=== PATIENT | female | born 1960 | race Caucasian/White ===

== ENCOUNTER 2021-10-21 10:43 | Observation (INO) | payer SELFPAY ==
[2021-10-21] VITALS (9 sets, daily range): BP systolic 94–122; BP diastolic 54–65
[~2021-10-21] VITALS: Ht 162 cm; Wt 65.4 kg
[~2021-10-21 10:43] MED LIST: HCT25T; RABE20TA; [UNRECOGNIZED DRUG - CODE]
[2021-10-21 11:09] LABS: BASOPHILS % (AUTO) 0 % (0-10); EOSINOPHILS % (AUTO) 1 % (0-10); HEMATOCRIT 38 % (35-52); HEMOGLOBIN 13.3 g/dL (11.5-16.0); LYMPHOCYTES % (AUTO) 35 % (12-44); MEAN CORPUSCULAR HEMOGLOBIN 30 pg (25-34); MEAN CORPUSCULAR HGB CONC 35 g/dL (32-36); MEAN CORPUSCULAR VOLUME 85 fL (80-99); MEAN PLATELET VOLUME 10.1 fL (9.0-12.2); MONOCYTES % (AUTO) 9 % (0-12); NEUTROPHILS % (AUTO) 54 % (42-75); PLATELET COUNT 309 10^3/uL (130-400); WHITE BLOOD COUNT 7.1 10^3/uL (4.3-11.0)
[2021-10-21 11:10] LABS: EOSINOPHILS # (AUTO) 0.1 10^3/uL (0.0-0.3); LYMPHOCYTES # (AUTO) 2.5 X 10^3 (1.0-4.0); MONOCYTES # (AUTO) 0.6 X 10^3 (0.0-1.0); NEUTROPHILS # (AUTO) 3.9 X 10^3 (1.8-7.8)
--- NOTE | 2021-10-21 11:10 | ED General ---
General Chief Complaint: Chest Pain Stated Complaint: CHEST PAIN Source of Information: Patient History of Present Illness Date Seen by Provider: Oct 21, 2021 Time Seen by Provider: 10:49 Initial Comments 61-year-old female presenting with multiple vague complaints. She states that she had gone to [employer] an order from [employer]. She started feeling tingling in her fingers while she was there. She had a headache on the left side of her head as well as nausea and increased belching. She had finished getting the order in the car and took it back to her client. After getting that done she had called the clinic to asked them what they thought about her symptoms and while talking to them she had some light chest pain on the left side. When she mentioned that she had chest pain they immediately told her to go to the emergency department. Patient states she has a history of high blood pressure that she takes hydrochlorothiazide for as well as she has hiatal hernia and polyps and she takes Protonix for that. She has history of frequent urinary tract infections because multiple complaints for her. She has no symptoms currently other than some mild tingling in her fingers. She denies having any fever or chills. She was having some lower abdominal discomfort while her symptoms were going on this morning. Her symptoms started around 930 or 10. Timing/Duration: 1/2 Hour Severity: Moderate Modifying Factors: improves with Rest Associated Systoms: Chest Pain (Reports some light chest pain to the left side of her chest); No Cough, No Diaphoresis, No Fever/Chills; Headaches; No Loss of Appetite, No Malaise, No Nausea/Vomiting, No Rash, No Seizure, No Shortness of Air, No Syncope, No Weakness Allergies and Home Medications Allergies Coded Allergies: Penicillins (Unverified Allergy, Mild, 09/18/09) Patient Home Medication List Home Medication List Reviewed: Yes Hydrochlorothiazide (Hydrochlorothiazide) 25 Mg Tablet, (Reported) Entered as Reported by: CASSANDRA REID on 09/18/091443 Multivitamins (Tab A Sue) 1 Each Tablet, (Reported) Entered as Reported by: CASSANDRA REID on 09/18/091444 Rabeprazole Sodium (Aciphex) 20 Mg Tablet., (Reported) Entered as Reported by: CASSANDRA REID on 09/18/091443 Review of Systems Review of Systems Constitutional: No chills; dizziness (With standing); No fever EENTM: No ear pain, No blurred vision, No double vision, No nose congestion Respiratory: No cough, No short of breath Cardiovascular: see HPI; No edema, No palpitations, No syncope Gastrointestinal: see HPI; No diarrhea, No vomiting Genitourinary: see HPI Musculoskeletal: no symptoms reported Skin: no symptoms reported Psychiatric/Neurological: Anxiety, Tingling (In her fingers) Hematologic/Lymphatic: Denies Blood Clots Past Lspboom-Rifnsf-Hifeom Hx Patient Social History Tobacco Use?: No Use of E-Cig and/or Vaping dev: No Substance use?: No Alcohol Use?: No Pt feels they are or have been: No Immunizations Up To Date First/Initial COVID19 Vaccinat: 2020 Second COVID19 Vaccination Roshan: 2020 COVID19 Vaccine Hse Coordinator: GORDON Past Medical History Surgery/Hospitalization HX: Hiatal hernia, hypertension, polyps, frequent UTIs Physical Exam Vital Signs Vital Signs - First Documented 10/21/21 10:43 Temp 36.6 Pulse 95 Resp 17 B/P (MAP) 161/80 (107) Pulse Ox 99 O2 Delivery Room Air Capillary Refill : Less Than 3 Seconds Height, Weight, BMI Height: 5'4.00" Weight: 161lbs. oz. 73.937979di; BMI Method: General Appearance: Anxious HEENT: PERRL/EOMI, Pharynx Normal Neck: Full Range of Motion, Supple Respiratory: Chest Non Tender, Lungs Clear, Normal Breath Sounds, No Accessory Muscle Use, No Respiratory Distress Cardiovascular: Regular Rate, Rhythm, Normal Peripheral Pulses Gastrointestinal: Normal Bowel Sounds, No Pulsatile Mass, Non Tender, Soft Rectal: Deferred Extremity: Normal Capillary Refill, Normal Inspection, No Calf Tenderness, No Pedal Edema Neurologic/Psychiatric: Alert, Oriented x3, paperhanger pipe II-XII Norm as Tested Skin: Normal Color, Warm/Dry; No Rash Progress/Results/Core Measures Suspected Sepsis SIRS Temperature: Pulse: Respiratory Rate: Laboratory Tests 10/21/21 10:56: White Blood Count 7.1 Blood Pressure / Mean: Laboratory Tests 10/21/21 10:56: Creatinine 0.72, INR Comment 0.9, Platelet Count 309, Total Bilirubin 0.7 Results/Orders Lab Results Laboratory Tests Test 10/21/21 10:56 1/6/22 11:13 10/21/21 12:45 Range/Units White Blood Count 7.1 4.3-11.0 10^3/uL Red Blood Count 4.46 3.80-5.11 10^6/uL Hemoglobin 13.3 11.5-16.0 g/dL Hematocrit 38 35-52 % Mean Corpuscular Volume 85 80-99 fL Mean Corpuscular Hemoglobin 30 25-34 pg Mean Corpuscular Hemoglobin Concent 35 32-36 g/dL Red Cell Distribution Width 12.9 10.0-14.5 % Platelet Count 309 130-400 10^3/uL Mean Platelet Volume 10.1 9.0-12.2 fL Immature Granulocyte % (Auto) 0 % Neutrophils (%) (Auto) 54 42-75 % Lymphocytes (%) (Auto) 35 12-44 % Monocytes (%) (Auto) 9 0-12 % Eosinophils (%) (Auto) 1 0-10 % Basophils (%) (Auto) 0 0-10 % Neutrophils # (Auto) 3.9 1.8-7.8 X 10^3 Lymphocytes # (Auto) 2.5 1.0-4.0 X 10^3 Monocytes # (Auto) 0.6 0.0-1.0 X 10^3 Eosinophils # (Auto) 0.1 0.0-0.3 10^3/uL Basophils # (Auto) 0.0 0.0-0.1 10^3/uL Immature Granulocyte # (Auto) 0.0 0.0-0.1 10^3/uL Prothrombin Time 13.0 12.2-14.7 SEC INR Comment 0.9 0.8-1.4 Activated Partial Thromboplast Time 30 24-35 SEC Sodium Level 139 135-145 MMOL/L Potassium Level 3.6 3.6-5.0 MMOL/L Chloride Level 102 98-107 MMOL/L Carbon Dioxide Level 28 21-32 MMOL/L Anion Gap 9 5-14 MMOL/L Blood Urea Nitrogen 15 7-18 MG/DL Creatinine 0.72 0.60-1.30 MG/DL Estimat Glomerular Filtration Rate 83 BUN/Creatinine Ratio 21 Glucose Level 108 H 70-105 MG/DL Calcium Level 9.4 8.5-10.1 MG/DL Corrected Calcium 9.1 8.5-10.1 MG/DL Magnesium Level 1.9 1.6-2.4 MG/DL Total Bilirubin 0.7 0.1-1.0 MG/DL Aspartate Amino Transf (AST/SGOT) 14 5-34 U/L Alanine Aminotransferase (ALT/SGPT) 14 0-55 U/L Alkaline Phosphatase 88 40-136 U/L Troponin I < 0.30 < 0.30 <0.30 NG/ML Pro-B-Type Natriuretic Peptide 89.7 H <75.0 PG/ML Total Protein 6.9 6.4-8.2 GM/DL Albumin 4.4 3.2-4.5 GM/DL Lipase 24 8-78 U/L Urine Color YELLOW Urine Clarity CLEAR Urine pH 6.5 5-9 Urine Specific Orient <=1.005 1.016-1.022 Urine Protein NEGATIVE NEGATIVE Urine Glucose (UA) NEGATIVE NEGATIVE Urine Ketones NEGATIVE NEGATIVE Urine Nitrite NEGATIVE NEGATIVE Urine Bilirubin NEGATIVE NEGATIVE Urine Urobilinogen 0.2 < = 1.0 MG/DL Urine Leukocyte Esterase TRACE H NEGATIVE Urine RBC (Auto) NEGATIVE NEGATIVE Urine RBC NONE /HPF Urine WBC 0-2 /HPF Urine Squamous Epithelial Cells 0-2 /HPF Urine Renal Epithelial Cells RARE /HPF Urine Crystals NONE /LPF Urine Bacteria NEGATIVE /HPF Urine Casts NONE /LPF Urine Mucus NEGATIVE /LPF Urine Culture Indicated NO My Orders Orders - JOCELYN OCONNELL MD Cbc With Automated Diff (10/21/21 10:48) Magnesium (10/21/21 10:48) Chest 1 View Ap/Pa Only (10/21/21 10:48) Ekg Tracing (10/21/21 10:48) Comprehensive Metabolic Panel (10/21/21 10:48) Protime With Inr (10/21/21 10:48) Partial Thromboplastin Time (10/21/21 10:48) O2 (10/21/21 10:48) Monitor-Rhythm Ecg Trace Only (10/21/21 10:48) Ed Iv/Invasive Line Start (10/21/21 10:48) Lipase (10/21/21 10:48) Troponin I Fs (10/21/21 10:48) Probnp Fs (10/21/21 10:48) Ua Culture If Indicated (10/21/21 11:02) Aspirin Chewable Tablet (Baby Aspirin Ch (10/21/21 11:15) Ns Iv 1000 Ml (Sodium Chloride 0.9%) (10/21/21 11:15) Nitroglycerin Ointment (Nitrobid Ointme (10/21/21 12:17) Ed Admission (Communication) (10/21/21 12:35) Covid 19 Inhouse Test (10/21/21 12:36) Influenza A And B By Pcr (10/21/21 12:36) Isolation Central Supply Req (10/21/21 12:36) Troponin I Fs (10/21/21 12:36) Vital Signs/I&O 10/21/21 10/21/21 10:43 13:40 Temp 36.6 36.5 Pulse 95 76 Resp 17 18 B/P (MAP) 161/80 (107) 151/62 Pulse Ox 99 98 O2 Delivery Room Air Room Air Capillary Refill : Less Than 3 Seconds Progress Note #1: Progress Note Obtain electrocardiogram with her complaint of chest pain. Check basic labs including cardiac enzymes and urinalysis. Chest x-ray to evaluate the structure of her heart and lungs. Will administer IV fluids for hydration and monitor her on cardiac telemetry monitoring while awaiting results. Differential diagnosis includes coronary artery disease, acute coronary syndrome, myocardial infarction, pneumonia, UTI, hiatal hernia, peptic ulcer disease, anxiety, dehydration, electrolyte imbalance Progress Note #2: Time: 11:39 Progress Note Electrocardiogram does not show acute ST elevation. The chest x-ray was clear without acute process. Urinalysis had trace leukocyte esterase but was otherwise clear. Since she was complaining of being dizzy when she stood a liter of normal saline was administered for hydration. She was given 324 mg of aspirin for her complaint of chest pain while waiting on testing. The chemistry panel did not demonstrate any acute significant abnormality and her initial cardiac enzymes are negative. The blood count was normal without significant abnormality as well. Will review results with the patient and plan on recheck of her troponin at 2 hours. on recheck of the patient she states she was feeling better after fluids and aspirin, but was cold from getting IVF. I stopped the IVF since she had already gotten 750-800 mL infused and her urine was diluted. She reports still some slight dizzy or light headed sensation but overall felt improved. Will continue to observe on telemetry monitoring and repeat troponin I in about an hour. Provided she has no further symptoms and her troponin remains 0, then we could try to get her home with plan to follow-up through the clinic for continued evaluation. If she has the troponin going up borderline new symptoms and anything changes then it may be a matter of discussion with the provider on-call for [facility] about observation stay for testing in the hospital Progress Note #3: Time: 12:15 Progress Note Patient reports she is now having intermittent chest pains again and still feeling dizzy with standing. She has some lower abdominal discomfort as well. She reports recently being around her sister, who is positive for Covid. Will try adding nitroglycerin paste and see if that helps her intermittent chest pains and check with Dr. Vick about admit for ACS rule out and possible Covid testing in [place]. Progress Note #4: Time: 12:35 Progress Note d/w Dr. Vick and will observe pt for her atypical chest pains and multiple vague complaints. She was around her sister in last few weeks that was positive for Covid so will swab for that and have her as PUI until results are back. Will advise Dr. Curry of consult. When updated pt about Dr. Vick accepting admit she added complaint of having pain in her upper thighs and recurrent abdominal pain now since the nitroglycerin was placed and her chest pains had resolved. None of her test results or exam would explain why she was having these symptoms. [address] Curry about consult and he was saying the pt could have serial enzymes done through the ED to rule out a cardiac source of her pain since she was not having ST elevation on ECG and she could see him as an outpatient. However, it would be 1600 before she had 6 hours since initial chest pain started, and she has had recurrent pains while at rest. Also with her left sided headache, lower abdominal pain, pain in her thighs and PUI Covid will continue with observation admit for additional evaluation and monitoring longer than could be done here in the ED. ECG Initial ECG Impression Date: Oct 21, 2021 Initial ECG Impression Time: 10:45 Initial ECG Rate: 73 Initial ECG Rhythm: Normal Sinus Initial ECG Comparisson: No Previous ECG Available Comment Normal sinus rhythm with a heart rate of [address] elevation. UT interval 140 ms. QT interval 419 ms with a QTc interval 462 ms. There is global T wave flattening. There is no prior tracing available for comparison Diagnostic Imaging Diagonstic Imaging: Xray Plain Films/CT/US/NM/MRI: chest Comments [facility]. [place], [place] NAME: BHASKAR PEREZ [facility] REC#: [id number] PT STATUS: REG ER : 1960 PHYSICIAN: JOCELYN OCONNELL MD ADMIT DATE: 10/21/21/ER FS Signed Date of Exam:10/21/21 CHEST 1 VIEW AP/PA ONLY EXAMINATION: Chest 1 view HISTORY: chest pain COMPARISON: 09/18/2009 FINDINGS: Heart size and pulmonary vasculature are normal. The lungs are clear without consolidation, pleural effusion, or pneumothorax. The osseous structures are intact. IMPRESSION: 1. No acute radiographic abnormality in the chest. Dictated by: Dictated on workstation # [id number] Dict: 10/21/21 1111 Trans: 10/21/21 1113 [facility] [id number] Interpreted by: TEJAS MAJOR DO Electronically signed by: TEJAS MAJOR DO 10/21/21 1113 Reviewed: Reviewed by Me Departure Communication (Admissions) Time/Spoke to Admitting Phy: 12:[address] Vick for the [facility] service and she will place Queued orders for admit for chest pain rule out. Will place her as Covid PUI until negative result obtained and will swab here so test can be done once she arrives in [place]. Will advise Dr. Curry of the admit as well. Time/Spoke to Consulting Phy: 12:55 Dr. Curry notified of consult for admit to [facility] Impression Primary Impression: Atypical chest pain Additional Impressions: Belching Hand tingling Qualified Codes: R20.2 - Paresthesia of skin Person under investigation for COVID-19 Intermittent abdominal pain Bilateral thigh pain Disposition: 30 STILL A PATIENT Condition: Stable Admissions Decision to Admit Reason: Admit from ER (General) Decision to Admit/Date: Oct 21, 2021 Time/Decision to Admit Time: 12:35 Departure-Patient Inst. Referrals: MELCHOR BRITO MD (PCP) Primary Care Physician JOCELYN OCONNELL MD Oct 21, 2021 11:10
[2021-10-21 11:14] LABS: INR 0.9 (0.8-1.4)
[2021-10-21] MEDS ORDERED: ASPIRIN 81 MG CHEW (CHILDREN'S ASA) PO STA (11:15)
[2021-10-21] MEDS ORDERED: NS IV 1000 ML 1,000 ML IV STA (11:15)
[2021-10-21 11:25] LABS: BILIRUBIN,URINE NEGATIVE (NEGATIVE); CLARITY,URINE CLEAR; COLOR,URINE YELLOW; GLUCOSE, URINE (UA) NEGATIVE (NEGATIVE); KETONES,URINE NEGATIVE (NEGATIVE); LEUKOCYTE ESTERASE ,URINE TRACE (NEGATIVE); NITRITE,URINE NEGATIVE (NEGATIVE); PH,URINE 6.5 (5-9); PROTEIN,URINE NEGATIVE (NEGATIVE)
[2021-10-21 11:31] LABS: BACTERIA,URINE NEGATIVE /HPF; RENAL EPITHELIAL CELLS,URINE RARE /HPF; SQUAMOUS EPITHELIAL CELL,UR 0-2 /HPF; WBC,URINE 0-2 /HPF
[2021-10-21 11:34] LABS: CREATININE SERUM 0.72 MG/DL (0.60-1.30); POTASSIUM 3.6 MMOL/L (3.6-5.0)
[2021-10-21 11:35] LABS: ALBUMIN 4.4 GM/DL (3.2-4.5); BILIRUBIN,TOTAL 0.7 MG/DL (0.1-1.0); CALCIUM 9.4 MG/DL (8.5-10.1); MAGNESIUM 1.9 MG/DL (1.6-2.4); TOTAL PROTEIN 6.9 GM/DL (6.4-8.2)
[2021-10-21] MEDS ORDERED: NITROGLYCERIN 2% OINT 1 GM UNIT DOSE PACKET TOP STA (12:17)
[2021-10-21] MEDS ORDERED: PATIENT MAY USE OWN MEDS, ALL PO SCH (14:45)
[2021-10-21] MEDS ORDERED: ONDANSETRON 4 MG/2 ML (SDV) Z0FRAN IVP PRN (14:45)
[2021-10-21] MEDS ORDERED: morphine INJ 4 MG/ML 1 ML (VIAL/SYRINGE) IV PRN (14:45)
[2021-10-21] MEDS ORDERED: NITROGLYCERIN 0.4 MG SL TABS BTL 25'S SL PRN (14:45)
[2021-10-21] MEDS ORDERED: LORA5TAB9 PO (15:15)
[2021-10-21] MEDS ORDERED: PANT40TA52 PO ×2 (15:15→15:42)
[2021-10-21] MEDS ORDERED: POLY17PO6 PO (15:42)
[2021-10-21] MEDS ORDERED: MULT-1136 PO (15:42)
[2021-10-21] MEDS ORDERED: SUCR1TAB36 PO (15:42)
[2021-10-21] MEDS ORDERED: HYDR25TA4 PO (15:42)
[2021-10-21] MEDS ORDERED: ASPI-1238 PO (15:42)
[2021-10-21] MEDS ORDERED: CHOL10007 PO (15:42)
[2021-10-21] MEDS ORDERED: VITA100T8 PO (15:42)
[2021-10-21] MEDS ORDERED: LORA10TA7 PO (15:42)
[2021-10-21] MEDS ORDERED: ACETAMINOPHEN 500 MG TAB (TYLENOL) PO PRN (17:45)
[2021-10-21] MEDS ORDERED: ACETAMINOPHEN 500 MG TAB (TYLENOL) ONE (17:51)
[2021-10-22 04:00] VITALS: BP 103/59
[2021-10-22 07:07] LABS: TRIGLYCERIDES 37 MG/DL (<150); VLDL CHOLESTEROL 7 MG/DL (5-40)
[2021-10-22 07:12] LABS: CHOLESTEROL 156 MG/DL (< 200); HDL CHOLESTEROL 54 MG/DL (40-60)
[2021-10-22] MEDS ORDERED: polyethylene glycoL POWDER 17 GM (MIRALAX) PACK PO PRN (07:30)
[2021-10-22 07:46] VITALS: BP 103/59
[2021-10-22 08:56] VITALS: BP 124/60
[2021-10-22] MEDS ORDERED: TRM50T PO (09:20)
--- NOTE | 2021-10-22 09:59 | Short Stay Summary ---
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 She went to [facility] to get grocery pickup and then her fingers of her left hand felt a little numb and when she got done unloading the cart, she felt lightheaded and dizzy and numb fingers so she had her come get her and take her to the ER. Pain in chest was not persistent, just some sharp shooting pains for a second at a time that was in various areas over her left chest, hasn't had anymore since admission. Has had some pain in both sides of her groin area that she thinks is from the stairs. Did have some possible heaviness in her epigas tric/low chest area yesterday. Denies fever, shortness of breath. Was sick on with cough and didn't feel well and felt drained, but felt better by next day. Her sister is getting over COVID, but it was last month before when she was with her last, the Monday before . Has had 2 doses of COVID vaccine (Moderna) in December and January, was going to get booster but had to wait due to being on steroids for sinuses which she thinks was several weeks ago. Source: patient Date seen by provider: Oct 22, 2021 Time Seen by Provider: 09:59 Attending Physician Saskia Vick MD PCP Lam Bautista MD Consult Date of Admission Oct 21, 2021 at 14:33 Home Medications Home Medications Reviewed patient Home Medication Reconciliation performed by pharmacy medication reconciliations maintenance parts technician and/or nursing. Patients Allergies have been reviewed. Allergies Coded Allergies: Penicillins (Unverified Allergy, Mild, 09/18/09) Sulfa (Sulfonamide Antibiotics) (Verified Allergy, Unknown, 10/21/21) tetracycline (Verified Allergy, Unknown, 10/21/21) AVJ-Klbjrk-Crcyyb Hx Patient Social History Smoking Status: Never a Smoker Alcohol Use?: No Have you traveled recently?: No Immunizations Up To Date Influenza Vaccine Up-to-Date: No; Not Current First/Initial COVID19 Vaccinat: Dec 2020 Second COVID19 Vaccination Roshan: Jan 2021 COVID19 Vaccine Cake Knocker: MODERNA Past Medical History PMHx: Hiatal hernia Hypertension Arthritis SurgHx: Hysterectomy 2005 Abdominal hernia repair around age 6 Family Medical History Significant Family History: No Pertinent Family Hx Review of Systems ([facility]) Constitutional: No fever EENTM: No nose congestion Respiratory: No cough, No short of breath Cardiovascular: see HPI Gastrointestinal: No abdominal pain, No diarrhea; nausea (had around [place], better now); No vomiting Genitourinary: No dysuria Musculoskeletal: joint pain Skin: No rash Reviewed Test Results Reviewed Test Results Lab Laboratory Tests Test 10/21/21 10:56 10/21/21 11:13 10/21/21 12:45 10/21/21 15:07 Range/Units White Blood Count 7.1 4.3-11.0 10^3/uL Red Blood Count 4.46 3.80-5.11 10^6/uL Hemoglobin 13.3 11.5-16.0 g/dL Hematocrit 38 35-52 % Mean Corpuscular Volume 85 80-99 fL Mean Corpuscular Hemoglobin 30 25-34 pg Mean Corpuscular Hemoglobin Concent 35 32-36 g/dL Red Cell Distribution Width 12.9 10.0-14.5 % Platelet Count 309 130-400 10^3/uL Mean Platelet Volume 10.1 9.0-12.2 fL Immature Granulocyte % (Auto) 0 % Neutrophils (%) (Auto) 54 42-75 % Lymphocytes (%) (Auto) 35 12-44 % Monocytes (%) (Auto) 9 0-12 % Eosinophils (%) (Auto) 1 0-10 % Basophils (%) (Auto) 0 0-10 % Neutrophils # (Auto) 3.9 1.8-7.8 X 10^3 Lymphocytes # (Auto) 2.5 1.0-4.0 X 10^3 Monocytes # (Auto) 0.6 0.0-1.0 X 10^3 Eosinophils # (Auto) 0.1 0.0-0.3 10^3/uL Basophils # (Auto) 0.0 0.0-0.1 10^3/uL Immature Granulocyte # (Auto) 0.0 0.0-0.1 10^3/uL Prothrombin Time 13.0 12.2-14.7 SEC INR Comment 0.9 0.8-1.4 Activated Partial Thromboplast Time 30 24-35 SEC Sodium Level 139 135-145 MMOL/L Potassium Level 3.6 3.6-5.0 MMOL/L Chloride Level 102 98-107 MMOL/L Carbon Dioxide Level 28 21-32 MMOL/L Anion Gap 9 5-14 MMOL/L Blood Urea Nitrogen 15 7-18 MG/DL Creatinine 0.72 0.60-1.30 MG/DL Estimat Glomerular Filtration Rate 83 BUN/Creatinine Ratio 21 Glucose Level 108 H 70-105 MG/DL Calcium Level 9.4 8.5-10.1 MG/DL Corrected Calcium 9.1 8.5-10.1 MG/DL Magnesium Level 1.9 1.6-2.4 MG/DL Total Bilirubin 0.7 0.1-1.0 MG/DL Aspartate Amino Transf (AST/SGOT) 14 5-34 U/L Alanine Aminotransferase (ALT/SGPT) 14 0-55 U/L Alkaline Phosphatase 88 40-136 U/L Troponin I < 0.30 < 0.30 < 0.028 <0.028 NG/ML Pro-B-Type Natriuretic Peptide 89.7 H <75.0 PG/ML Total Protein 6.9 6.4-8.2 GM/DL Albumin 4.4 3.2-4.5 GM/DL Lipase 24 8-78 U/L Urine Color YELLOW Urine Clarity CLEAR Urine pH 6.5 5-9 Urine Specific Morrison <=1.005 1.016-1.022 Urine Protein NEGATIVE NEGATIVE Urine Glucose (UA) NEGATIVE NEGATIVE Urine Ketones NEGATIVE NEGATIVE Urine Nitrite NEGATIVE NEGATIVE Urine Bilirubin NEGATIVE NEGATIVE Urine Urobilinogen 0.2 < = 1.0 MG/DL Urine Leukocyte Esterase TRACE H NEGATIVE Urine RBC (Auto) NEGATIVE NEGATIVE Urine RBC NONE /HPF Urine WBC 0-2 /HPF Urine Squamous Epithelial Cells 0-2 /HPF Urine Renal Epithelial Cells RARE /HPF Urine Crystals NONE /LPF Urine Bacteria NEGATIVE /HPF Urine Casts NONE /LPF Urine Mucus NEGATIVE /LPF Urine Culture Indicated NO SARS-CoV-2 RNA (RT-PCR) Positive H Negative Test 10/22/21 06:22 Range/Units Triglycerides Level 37 <150 MG/DL Cholesterol Level 156 < 200 MG/DL LDL Cholesterol Direct 99 1-129 MG/DL VLDL Cholesterol 7 5-40 MG/DL HDL Cholesterol 54 40-60 MG/DL Radiology CXR: IMPRESSION: 1. No acute radiographic abnormality in the chest. Physical Exam-([facility]C) Physical Exam Vital Signs VS - Last 72 Hours, by Label 10/21/21 10/21/21 10/21/21 10/21/21 10:43 13:40 15:17 15:20 Temp 36.6 36.5 37.3 Pulse 95 76 69 64 Resp 17 18 18 B/P (MAP) 161/80 (107) 151/62 107/54 (71) Pulse Ox 99 98 94 O2 Delivery Room Air Room Air Room Air 10/21/21 10/21/21 10/21/21 10/21/21 15:43 15:58 16:14 16:29 Pulse 70 64 65 78 B/P (MAP) 108/65 (79) 122/64 (83) 104/61 (75) 96/55 (69) Pulse Ox 95 94 96 93 O2 Delivery Room Air Room Air Room Air Room Air 10/21/21 10/21/21 10/21/21 10/21/21 16:43 17:13 19:00 20:00 Temp 36.8 Pulse 62 61 62 65 Resp 16 B/P (MAP) 94/58 (70) 102/61 (75) 99/55 (70) Pulse Ox 95 94 95 O2 Delivery Room Air Room Air Room Air 10/21/21 10/21/21 10/22/21 10/22/21 20:00 23:50 01:00 04:00 Temp 37.0 37.0 Pulse 74 70 70 Resp 18 16 B/P (MAP) 99/55 (70) 103/59 (74) Pulse Ox 95 95 94 O2 Delivery Room Air Room Air Room Air 10/22/21 10/22/21 10/22/21 07:00 07:46 08:56 Temp 37.0 36.8 Pulse 76 70 67 Resp 16 20 B/P (MAP) 103/59 (74) 124/60 (81) Pulse Ox 94 96 O2 Delivery Room Air Room Air Capillary Refill : Less Than 3 Seconds General Appearance: WD/WN, no apparent distress Respiratory: lungs clear, normal breath sounds Cardiovascular: regular rate, rhythm, no murmur, other (mild ttp over left chest) Gastrointestinal: normal bowel sounds, soft, tenderness (epigastric) Extremities: no pedal edema Neurologic/Psychiatric: no motor/sensory deficits, alert Skin: normal color, warm/dry Short Stay Diagnosis Discharge Diagnosis-Short Stay Admission Diagnosis Atypical chest pain Person under investigation for COVID19 Final Discharge Diagnosis Atypical chest pain Covid19 infection Conclusion Plan Pt was observed and had negative troponin x 3, no further chest pain and was found to have COVID19 which is suspected to the cause of her episode of feeling weak and dizzy after exertion. Discussed if symptoms recur she still may need cardiac work-up. She is asymptomatic at this time, does not require supplemental oxygen, and it seem she could possibly have gotten COVID as long ago as nearly 2 weeks given her illness at [place], so it is unclear if she would qualify for monoclonal antibody infusion, but she states she would not want it anyway, since she is already feeling well and is anticipating mild disease since she is vaccinated. Clinical Quality Measures AMI/AHF: ASA po Prior to arrival: No Assessment/Plan Assessment/Plan Admission Status: Observation (1) Person under investigation for COVID-19 Status: Resolved (2) Atypical chest pain Status: Resolved SASKIA VICK MD Oct 22, 2021 09:59
--- NOTE | 2021-10-22 10:06 | Discharge Summary ---
Discharge [facility] Discharge Medications New, Converted or Re-Newed RX: Other (No new medications) Continued Medications: Aspirin (Aspirin EC) 81 Mg Tablet.dr 81 MG PO 1200, TAB Cholecalciferol (Vitamin D3) (Vitamin D3) 25 Mcg Capsule 25 MCG PO 1200, CAP Hydrochlorothiazide (Hydrochlorothiazide) 25 Mg Tablet 25 MG PO 1200, TAB Loratadine (Loratadine) 10 Mg Tablet 10 MG PO 1200, TAB Multivitamin (Multivitamin) 1 Each Tablet 1 EACH PO 1200, TAB Pantoprazole Sodium (Pantoprazole Sodium) 40 Mg Tablet.dr 40 MG PO 1200, TAB Polyethylene Glycol 3350 (Miralax) 17 Gm Powd.pack 17 GM PO DAILY PRN for CONSTIPATION-2ND LINE, EACH Sucralfate (Carafate) 1 Gm Tablet 1 GM PO BIDAC, TAB Tramadol HCl (Tramadol HCl) 50 Mg Tablet 50 MG PO Q4H PRN for PAIN-MODERATE (5-7) for 7 Days, #1 TAB Vitamin E Mixed (Vitamin E) 100 Unit Tablet 100 UNIT PO 1200, TAB Patient Instructions Goal/Follow Up Appt: Follow up with primary physician within a week of discharge Return to The Hospital For: Fever, shortness of breath, persistent chest pain Activity & Diet Discharge Diet: Regular Diet Activity as Tolerated: Yes REY MORE MD Oct 22, 2021 10:06
[2021-10-22 10:40] VITALS: BP 124/60
[2021-10-22] MEDS ORDERED: VITAMIN E MIXED 100 UNIT PO SCH (12:00)
[2021-10-22] MEDS ORDERED: MULTIVIT W/MINERALS TAB (THERAGRAN M) PO SCH (12:00)
[2021-10-22] MEDS ORDERED: PANTOPRAZOLE 40 MG (PROTONIX) TAB PO SCH (12:00)
[2021-10-22] MEDS ORDERED: LORATADINE (CLARITIN) 10 MG TAB PO SCH (12:00)
[2021-10-22] MEDS ORDERED: VITAMIN D3 25 MCG (1,000 UNITS) TABLET PO SCH (12:00)
[2021-10-22] MEDS ORDERED: ASPIRIN E.C. 81 MG (ECOTRIN) TAB PO SCH (12:00)
[2021-10-22] MEDS ORDERED: SUCRALFATE 1 GM (CARAFATE) TAB PO SCH (16:00)
== END 2021-10-22 11:30 | disposition home or self-care (01) ==
LOC: EDUNIT# 10:46 → ER FS 10:48 → 4TH 14:33
PROVIDERS: ADMIT Family Medicine; ATTEND Family Medicine
DX: U07.1 COVID-19 (principal); R07.89 Other chest pain; K44.9 Diaphragmatic hernia without obstruction or gangrene; I10 Essential (primary) hypertension; M19.90 Unspecified osteoarthritis, unspecified site; N39.0 Urinary tract infection, site not specified; R20.2 Paresthesia of skin; M79.652 Pain in left thigh; M79.651 Pain in right thigh; R10.9 Unspecified abdominal pain; Z79.899 Other long term (current) drug therapy
CPT/HCPCS: 36415; 71045; 80053; 80061; 81000; 83690; 83735; 83880; 84484 ×2; 85025; 85610; 85730; 87636; 93005 ×2; 93041; 99284; G0378

== ENCOUNTER → 2023-07-21 | Outpatient (CLI) | payer OTHER ==
[~2023-07-21] VITALS: Ht 162.6 cm; Wt 59.1 kg
[~2023-07-21] MED LIST changes: +ASPI-1238 PO; +CALC-308 PO; +CARB15DR2 OP; +CHOL10007 PO; +HYDR25TA4 PO; +LIDOCAINE 1% INJ 10 ML VIAL INJ ONE; +LORA10TA7 PO; +LORA5TAB9 PO; +MULT-1136 PO; +PANT40TA52 PO; +POLY17PO6 PO; +SUCR1TAB36 PO; +TRM50T PO; +VITA100T8 PO
--- NOTE | 2023-07-21 13:29 | Diagnostic Imaging Report ---
INDICATION: Right breast calcifications. PROCEDURE: The patient presents for a stereotactic biopsy. The patient was brought to the stereotactic suite, placed in a chair in a sitting upright position. The right breast was positioned craniocaudal. Stereotactic and tomographic imaging was performed to evaluate appropriate entry site. All images were viewed on a dedicated workstation. The cluster of microcalcifications in the upper outer right breast were stereotactically targeted. The superior right breast was then prepped and draped in the usual sterile fashion. A small amount of 1% lidocaine was utilized for superficial and deep anesthesia. The 8 gauge vacuum-assisted needle was advanced from a craniocaudal approach and placed per stereotactic coordinates. Four core biopsies were obtained with a vacuum-assisted device. Specimen radiograph was then obtained demonstrating the majority of the microcalcifications within sample labeled #3. A marker clip was then deployed. Needle was removed and hemostasis was obtained. 2-D CC and MLO mammogram of the right breast was then performed to evaluate clip location. Images demonstrate a clip in the upper outer right breast posterior depth. Patient tolerated the procedure well and left the department in stable condition. IMPRESSION: Successful right breast stereotactic biopsy of the cluster of microcalcifications in the upper outer right breast posterior depth. Pathology results are currently pending. Dictated by: Dictated on workstation # [id number]
== END ==
LOC: RAD 10:28
PROVIDERS: ATTEND Family Medicine
DX: D05.11 Intraductal carcinoma in situ of right breast (principal)
CPT/HCPCS: 19081; 88305; 88360; A4648

== ENCOUNTER 2023-08-08 05:44 | Outpatient (CLI) | payer OTHER ==
[~2023-08-08] VITALS: Ht 162.6 cm; Wt 66.2 kg
[~2023-08-08 05:44] MED LIST changes: -CALC-308 PO; -CARB15DR2 OP; -LIDOCAINE 1% INJ 10 ML VIAL INJ ONE
[2023-08-08] MEDS ORDERED: CALC-308 PO (12:57)
[2023-08-08] MEDS ORDERED: CARB15DR2 OP (12:57)
== END 2023-08-09 07:43 | disposition home or self-care (01) ==
LOC: PREOP 05:44
PROVIDERS: ATTEND Surgery
DX: Z01.818 Encounter for other preprocedural examination (principal)

== ENCOUNTER 2023-08-16 07:28 | Outpatient (CLI) | payer MEDICAID, OTHER ==
[2023-08-16] VITALS (10 sets, daily range): BP systolic 104–147; BP diastolic 55–79
[~2023-08-16] VITALS: Ht 162.6 cm; Wt 66.2 kg
[~2023-08-16 07:28] MED LIST changes: +CALC-308 PO; +CARB15DR2 OP
[2023-08-16] MEDS ORDERED: CLINDAMYCIN 600 MG/50 ML IVPB 50 ML IV ONE (08:00)
[2023-08-16] MEDS ORDERED: LIDOCAINE 1% INJ 10 ML VIAL INJ ONE (08:15)
[2023-08-16] MEDS: LACTATED RINGERS 1,000 ML 1,000 ML IV PRN ×2 (09:10→11:13)
[2023-08-16] MEDS ORDERED: LIDOCAINE 2% w/EPI 1:100,000 20 ML VIAL ONE (09:40)
[2023-08-16] MEDS ORDERED: ONDANSETRON INJECTION 4 MG/2 ML (SDV) ONE (10:13)
[2023-08-16] MEDS ORDERED: proPOfol INJECTION 200 MG/20 ML VIAL IV ONE (10:13)
[2023-08-16] MEDS ORDERED: LIDOCAINE PF 2% 5 ML VIAL ONE (10:13)
[2023-08-16] MEDS ORDERED: dexAMETHasone INJ 10 MG/ML 1 ML VIAL ONE (10:13)
[2023-08-16] MEDS ORDERED: fentaNYL INJECTION 100 MCG/2 ML VIAL ONE (10:13)
--- NOTE | 2023-08-16 10:41 | Progress Note-Pre Operative ---
Pre-Operative Progress Note Date of Available H&P: Aug 03, 2023 Date H&P Reviewed: Aug 16, 2023 Time H&P Reviewed: 10:38 History & Physical: H&P Reviewed, Patient Examed, No changes noted Pre-Operative Diagnosis: Right breast DCIS, site marked HELEN WOO DO Aug 16, 2023 10:40
--- NOTE | 2023-08-16 11:32 | Progress Note-Post Operative ---
Post-Operative Progess Note Surgeon (s)/Medical Donation Professional (s) Surgeon HELEN WOO DO Medical Donation Professional: FRANSISCA Weller Pre-Operative Diagnosis Right breast DCIS, site marked Post-Operative Diagnosis same pending path Procedure & Operative Findings Date of Procedure 08/16/23 Procedure Performed/Findings Right breast partial mastectomy with needle localization Anesthesia Type LMA Estimated Blood Loss Estimated blood loss (mL): scant Specimens/Packing Specimens Removed right breast tissue with needle, marked at 12 o'clock with short suture and toward chest wall with long suture, needle tip was medial HELEN WOO DO Aug 16, 2023 11:32
--- NOTE | 2023-08-16 11:34 | Discharge Inst-Surgical ---
Discharge Inst-Surgical Depart Medication/Instructions New, Converted or Re-Newed RX: Other (use home meds) Activity Activity as Tolerated: Yes Activity Instructions: Avoid Stress to Incision Driving Instructions: You May Drive Diet Discharge Diet: No Restrictions Diet After 24 Hours: Clear Liquid if Nauseous If Any Problems/Questions/Issu: Contact Your Physician, Go to Emergency Room Skin/Wound Care Infection Signs and Symptoms: Increased Redness, Foul Odor of Wound, Increased Drainage, Skin Itchy or Has a Rash, Increased Swelling, Temperature Above 101 F Wound Care Comment: wear a sports bra (tight fitting bra or kaylie wrap) all day for next week, except to shower Bathing Instructions: Shower Stitches/[place]/Dermabond Dis: HELEN Pope DO Aug 16, 2023 11:34
[2023-08-16] MEDS ORDERED: SEVOFLURANE (ULTANE) 15 ML INHAL SOLN ONE (11:38)
--- NOTE | 2023-08-16 12:00 | Diagnostic Imaging Report ---
INDICATION: Right breast DCIS. Patient is status post lumpectomy. FINDINGS: Specimen radiograph was submitted. The hookwire is located within the specimen. There are several small calcifications within the specimen as well located at coordinates F4. IMPRESSION: Right breast specimen radiograph, as described. Dictated by: Dictated on workstation # [id number]
--- NOTE | 2023-08-16 15:46 | Diagnostic Imaging Report ---
INDICATION: Right breast carcinoma. Patient presents for hookwire localization prior to lumpectomy. DETAILS OF THE PROCEDURE: The patient was brought to the mammographic suite and placed in a chair in the sitting upright position. The right breast was positioned lateral medial. Tomographic imaging of the right breast was then performed to evaluate for an appropriate entry site. The localizer clip appears to be inferiorly located in relation to the previously noted suspicious microcalcifications, consistent with clip migration. The subtle calcifications in the upper outer right breast were targeted. All images were viewed on a dedicated workstation. The lateral right breast was then prepped and draped in the usual sterile fashion. A localizer needle was advanced and placed per stereotactic and tomographic coordinates. The hookwire was then deployed and the needle was removed. Followup 2D CC and ML mammography was performed on dedicated mammographic equipment. The post procedure images demonstrate the hookwire in the upper outer aspect of the right breast at posterior depth. IMPRESSION: Hookwire localization of a subtle area of microcalcifications in the upper outer right breast at posterior depth. Dictated by: Dictated on workstation # [id number]
--- NOTE | 2023-08-19 19:03 | OPERATIVE REPORT ---
DATE OF SERVICE: 08/16/2023 PREOPERATIVE DIAGNOSIS: DCIS of right breast. POSTOPERATIVE DIAGNOSIS: DCIS of right breast, pending pathology. PROCEDURE: Right partial mastectomy with needle localization. SURGEON: Dr. Woo. FIBERGLASS MODEL MAKER: COURTNEY Weller. ANESTHESIA: LMA. SPECIMENS: Partial right mastectomy with needle localization, marked at the 12 o'clock position with a short stitch and then at the chest wall with a long stitch. The needle was left in place. BLOOD LOSS: Minimal. FLUIDS: Per anesthesia. POSTOPERATIVE CONDITION: Stable. INDICATIONS FOR PROCEDURE: The patient is a 63-year-old female who had findings of DCIS on a stereotactic biopsy, needed to have this further excised with the partial mastectomy, elected to do a needle localization. I had spoken with Dr. Davis. He stated that the clip had migrated and would not be in the specimen and he thinks she got most of the calcifications that he saw, but there were a few others that he was able to put the needle right next. This needle came out of the right breast at about the 9 o'clock position. FINDINGS: The calcifications that were suspicious were in the specimen. DESCRIPTION OF PROCEDURE: After informed consent, the patient was first sent to radiology for needle localization. She was then brought to the operating room and placed table in supine position, sterilely prepped and draped in normal fashion, infiltrated the skin with local at the 9 o'clock position as well as around to do a regional block. Then made an incision with #15 blade, carried down through the skin into the subcutaneous tissue, deepened down to subcutaneous tissue with Bovie electrocautery, creating flaps superiorly and inferiorly and then going around this guidewire needle and following it towards and under the nipple and areola, try to get good tissue coverage grasping with Allises and then able to get to the distal portion of the hook wire and get around it, removed this, placed a short stitch at the 12 o'clock position and then a long stitch at the chest wall, took one another piece. This was sent to radiology first where they confirmed that calcifications were in there and then will be sent to pathology. Copiously irrigated this incision with sterile water, had basically taking out tissue encompassing from about the 7-8 o'clock position to about the 10-11 o'clock position, taking out this tissue. There was no bleeding and then elected to just closed the skin with a 4-0 undyed Monocryl in running subcuticular fashion. Area was cleaned and dried. Dermabond placed as well as then a pressure and fluff dressing and the patient was then transferred to recovery room in stable condition. Sponge and needle count correct at the end of the case. Job ID: [id number] DocumentID: [id number] Dictated Date: 08/19/2023 16:17:34 Transmitter Operator Date: 08/19/2023 19:01:00 Dictated By: HELEN WOO DO
== END 2023-08-16 13:45 ==
LOC: SDC 07:28
PROVIDERS: ATTEND Surgery
DX: D05.11 Intraductal carcinoma in situ of right breast (principal); D24.1 Benign neoplasm of right breast; N62 Hypertrophy of breast; N60.81 Other benign mammary dysplasias of right breast
CPT/HCPCS: 76098; 87081